=== PATIENT | female | born 1960 | race Caucasian/White ===

== ENCOUNTER → 2020-03-29 14:00 | Outpatient (BNVA) | payer MEDICARE, MEDICAID, SELFPAY | PROVIDERS: Family Provider Internal Medicine; PCP Internal Medicine; Visit Provider Internal Medicine | DX: Z20.828 Contact with and (suspected) exposure to other viral communicable diseases (principal); Z23 Encounter for immunization; J44.9 Chronic obstructive pulmonary disease, unspecified; R73.9 Hyperglycemia, unspecified; Z72.0 Tobacco use | CPT/HCPCS: 80053; 83036; 84443; 85025; 87635 ==

== ENCOUNTER → 2021-03-24 15:29 | Outpatient (BNVA) | payer MEDICARE, MEDICAID, SELFPAY | PROVIDERS: Family Provider Internal Medicine; PCP Internal Medicine; Visit Provider Internal Medicine | DX: Z00.00 Encounter for general adult medical examination without abnormal findings (principal); E78.00 Pure hypercholesterolemia, unspecified | CPT/HCPCS: 80053; 80061; 84443 ==

== ENCOUNTER 2023-08-14 10:26 | Outpatient (CLI) | payer MEDICARE, MEDICAID, SELFPAY ==
--- NOTE | 2023-08-14 10:38 | MM_ITS ---
WS: [id number] BILATERAL 3D TOMOSYNTHESIS DIGITAL SCREENING MAMMOGRAPHY WITH CAD CLINICAL INFORMATION: SCREENING HISTORY: Screening mammogram. No current complaints. COMPARISON: 2012 TECHNIQUE: Bilateral CC and MLO views. FINDINGS: The breasts are composed of heterogeneous fibroglandular density tissue, which can limit the detectio n of small underlying mass lesions. No suspicious mass, asymmetry, calcifications, or architectural d istortion. No evidence of malignancy. Incidental punctate and lucent centered calcifications. Vascula r calcifications. IMPRESSION: MM/[place] [id number] BI-RADS: 2-Benign FOLLOW UP: 1 Year Follow-up Recommend return to annual screening mammography.
== END 2023-08-14 10:27 | disposition home or self-care (01) ==
LOC: RAD 10:27
PROVIDERS: Family Provider Internal Medicine; PCP Internal Medicine; Visit Provider Nurse Practitioner Family
DX: Z12.31 Encounter for screening mammogram for malignant neoplasm of breast (principal)
CPT/HCPCS: 77063; 77067

== ENCOUNTER 2023-12-09 19:04 | Emergency (ER) | payer MEDICARE, MEDICAID, SELFPAY ==
[2023-12-09 19:16] VITALS: BP 216/104; PULSE 71; RESP 18; TEMP 36.7; O2SAT 92
--- NOTE | 2023-12-09 19:59 | XRR_ITS ---
PROCEDURE INFORMATION: Exam: XR Left Ribs with PA Chest Exam date and time: 12/09/2023 8:27 PM Age: 63 years old Clinical indication: Chest wall pain; Left; Patient HX: Lt lower anterior rib pain post fall TECHNIQUE: Imaging protocol: Radiologic exam of the left ribs with PA chest. Views: 3 views COMPARISON: No relevant prior studies available. FINDINGS: Lungs: No consolidation. Mild left basilar atelectasis versus scarring. Pleural spaces: Unremarkable. No pleural effusion. No pneumothorax. Heart/Mediastinum: Unremarkable. No cardiomegaly. Bones/joints: Unremarkable. XR/XR ribs LT mn 3V w CXR1V [id number] IMPRESSION: Mild left basilar atelectasis versus scarring. No rib fractures identified.
[2023-12-09 20:10] VITALS: BP 194/128; PULSE 71; O2SAT 92
--- NOTE | 2023-12-09 20:21 | W.ED.FALL ---
HPI - Fall General: Chief Complaint: Fall Stated Complaint: Left Rib Pain Time Seen by Provider: 12/09/23 19:58 History of Present Illness: 63-year-old female comes in today for injury to the left ribs. Patient reports 3 to 4 days ago she had tripped and fell landed on left side. Since then she has had left rib pain. Patient appears nontoxic. Patient appears in mild to moderate pain. Patient has a history of COPD, depression, high blood pressure, and high cholesterol. Review of Systems General: Reports: 10 or more systems reviewed and unremarkable except in HPI and below Musc: Reports: other (Left rib pain) [facility] ED PFS: Medical History (Updated 12/09/23 @ 21:45 by HOOD Issa) Essential (primary) hypertension Chronic obstructive pulmonary disease, unspecified Peptic ulcer disease History of colon polyps Pure hypercholesterolemia, unspecified Major depressive disorder, single episode, unspecified Family History Other Cancer Diabetes Heart disease Social History Smoking and tobacco/nicotine status: current every day tobacco/nicotine user Alcohol intake: former Substance/Drug Use: never Adopted: No Marital status: Number of children: 5 service: No Current gender identity: Female Physical Exam Const: COMMON NORMALS: alert HENMT: COMMON NORMALS: normocephalic HEAD & SCALP: normocephalic MOUTH: Normal oral and palatal mucosa present Neck/C-Spine: COMMON NORMALS: full ROM Chest: CHEST: Yes tenderness (Left lateral rib, no crepitus, no subcutaneous emphysema) Resp: COMMON NORMALS: normal respiratory effort and clear to auscultation bilaterally AUSCULTATION: clear to auscultation bilaterally Cardio: COMMON NORMALS: regular rate and regular rhythm RATE: regular rate RHYTHM: regular rhythm Back/Pelvis: COMMON NORMALS: thoracic and lumbar spine normal to inspection Extremity: COMMON NORMALS: full ROM Neuro: SENSORIUM/ORIENTATION: Yes alert Skin: COMMON NORMALS: turgor normal GENERAL SKIN EXAM: turgor normal Course Vital Signs: Vital signs: Vital Signs Temperature 98.1 F 12/09/23 19:16 Pulse Rate 75 12/09/23 21:32 Respiratory Rate 18 12/09/23 21:32 Blood Pressure 177/104 12/09/23 21:32 Pulse Oximetry 92 12/09/23 21:32 Oxygen Delivery Me thod Room Air 12/09/23 21:32 MDM - Fall Medical Decision Making Patient comes in for concerns of possible fractured rib. On exam patient has some mild tenderness to the left lateral rib. No flailing or crepitus is noted in the chest wall. Differential diagnosis contusion, fracture, pneumonia. Chest x-ray noted some mild atelectasis in the left lung area. No acute fractures were noted. Reviewed exam with patient and family with recommendation for treatment and follow-up. Patient reports understanding and agreed to plan. Patient was given 0.1 of clonidine for elevated blood pressure showing good results from 216 systolic to 177. Lab Data Radiology Impressions Ribs X-Ray 12/09/23 19:59 IMPRESSION: Mild left basilar atelectasis versus scarring. No rib fractures identified. All radiology interpretation(s) finalized by discharge Discharge Plan Discharge Patient Disposition: Home Clinical Impression: Contusion of rib on left side Qualifiers: Encounter type: initial encounter Qualified Code(s): S20.212A - Contusion of left front wall of thorax, initial encounter Hypertension Qualifiers: Hypertension type: unspecified Qualified Code(s): I10 - Essential (primary) hypertension Condition: Stable Prescriptions: No Action ibuprofen 200 mg tablet 800 mg PO Q6H PRN citalopram 20 mg tablet 20 mg PO DAILY Qty: 90 3RF fluticasone propion-salmeterol [Advair Diskus] 500-50 mcg/dose blister with device 1 inh INHALATION BID Qty: 60 8RF lisinopril 40 mg tablet 40 mg PO DAILY Qty: 90 3RF simvastatin 80 mg tablet 80 mg PO DAILY Qty: 90 3RF varenicline 1 mg tablet 1 mg PO BID Qty: 60 6RF Discharge Orders: Discharge ED (Routine); Ordered 12/09/23 Ordered By: Tony Hair Referrals: Jocelyn Lezama DO [Primary Care Provider] - Discharge Diet: Usual diet Discharge Activity: Increase activity as tolerated Patient Instructions: Rib Contusion (ED) Activity Restrictions/Additional Instructions: Activity as tolerated. Use acetaminophen to help with pain. Use ice or heat for further pain relief. Continue with routine medications. Follow-up with primary care. Coding Level of Care Code ED Instructor Psychiatric Aide for Chg Fwd
[2023-12-09 20:47] VITALS: BP 194/128
[2023-12-09] MEDS: cloNIDine 0.1 mg Tablet PO (20:47)
[2023-12-09 21:32] VITALS: BP 177/104; PULSE 75; RESP 18; O2SAT 92
[2023-12-09 21:58] VITALS: BP 170/115; PULSE 75; RESP 18; O2SAT 91
== END 2023-12-09 21:59 | disposition home or self-care (01) ==
PROVIDERS: Emergency Provider Nurse Practitioner Family; PCP Family Medicine
DX: S20.212A Contusion of left front wall of thorax, initial encounter (principal); I10 Essential (primary) hypertension; Z72.0 Tobacco use; J44.9 Chronic obstructive pulmonary disease, unspecified; W01.0XXA Fall on same level from slipping, tripping and stumbling without subsequent striking against object, initial encounter
CPT/HCPCS: 71101; 99283

== ENCOUNTER 2024-02-26 09:41 | Outpatient (CLI) | payer MEDICARE, MEDICAID, SELFPAY ==
--- NOTE | 2024-02-26 09:45 | CT_ITS ---
WS: [id number] LDCT LUNG CANCER SCREENING HISTORY: SCREENING FOR MALIGNANT NEWPLASM OF RESPIRATORY ORGANS TECHNIQUE: Axial imaging performed from the apices to 1 cm below the costophrenic angles. Coronal and sagittal reformats are submitted with axial MIP series. All CT scans at [facility] use at least one of these dose optimization techniques: automated exposure control; mA and/or kV adjustment per patient size (includes targeted exams where dose is matched to clinical indication); or iterativ e reconstruction. DLP: 110.60 mGy.cm DIvol: Mean CTDIvol: 2.40 (mGy) COMPARISON: None available. Diagnostic quality: Satisfactory Lungs: No pulmonary nodule or mass. No pneumonia. No endobronchial lesions. Heart: Normal size heart with no pericardial effusion.. Other findings: Small mediastinal and hilar lymph nodes. Mild atherosclerosis thoracic aorta. Subster nal thyroid. Greater extension substernal on the RIGHT. Moderate sized hiatal hernia. LEFT adrenal ad enoma 2.0 cm. Anterior wedging of T12. CT/CT lung screening [id number] IMPRESSION: LUNG-RADS: 1-Negative FOLLOW UP: 12 Month: Continue annual screening with LDCT OTHER FINDINGS (S MODIFIER): None.
== END 2024-02-26 09:42 | disposition home or self-care (01) ==
LOC: RAD 09:41
PROVIDERS: PCP Family Medicine; Visit Provider Family Medicine
DX: Z12.2 Encounter for screening for malignant neoplasm of respiratory organs (principal); E04.9 Nontoxic goiter, unspecified; K44.9 Diaphragmatic hernia without obstruction or gangrene; D35.01 Benign neoplasm of right adrenal gland
CPT/HCPCS: 71271

== ENCOUNTER 2024-11-28 14:42 | Outpatient (CLI) | payer MEDICARE, MEDICAID, SELFPAY ==
--- NOTE | 2024-11-28 14:48 | USR_ITS ---
PROCEDURE INFORMATION: Exam: US Duplex Bilateral Lower Extremity Arteries Exam date and time: 11/28/2024 3:18 PM Age: 64 years old Clinical indication: Pain; Leg, lower; Bilateral; Additional info: Peripheral arterial occlusive dz TECHNIQUE: Imaging protocol: Real-time ultrasound scan of the arteries of the bilateral lower extremities with 2-D gardner scale, color Doppler flow and spectral waveform analysis. Images documented and saved. COMPARISON: No relevant prior studies available. FINDINGS: Right common femoral artery: No occlusion or significant stenosis. Normal waveform. Right superficial femoral artery: No occlusion or significant stenosis. Normal waveform. Right popliteal artery: No occlusion or significant stenosis. Normal waveform. Right calf/foot arteries: No occlusion or significant stenosis in the visualized arteries. Normal waveforms. Dorsalis pedis artery is patent. Left common femoral artery: Monophasic Doppler waveforms. Left superficial femoral artery: Monophasic Doppler waveforms. Left popliteal artery: Monophasic Doppler waveforms. Left calf/foot arteries: Monophasic Doppler waveforms. US/CV arterial duplex [facility] [id number] IMPRESSION: There is evidence of significant left iliac artery disease
== END 2024-11-28 14:43 | disposition home or self-care (01) ==
LOC: RAD 14:45
PROVIDERS: PCP Family Medicine; Visit Provider Family Medicine
DX: I73.9 Peripheral vascular disease, unspecified (principal)
CPT/HCPCS: 93925